=== PATIENT | female | born 1960 | race African-American/Black ===

== ENCOUNTER 2018-12-10 03:57 | Emergency (ER) | payer MEDICARE ==
[2018-12-10] MEDS ORDERED: Lidocaine 1% w/Epinephrine 1:100K 20 ML VIAL ONE (04:07)
[2018-12-10] MEDS ORDERED: Proparacaine 0.5% Opth 15 ML BOT ONE (04:07)
[2018-12-10] MEDS ORDERED: Fluorescein Opthalmic Strip ONE (04:08)
[2018-12-10] MEDS ORDERED: Acetaminophen 500 MG TAB ONE (05:19)
[2018-12-10] MEDS ORDERED: cloNIDine 0.1 MG TAB ONE (05:34)
== END 2018-12-10 05:42 | disposition home or self-care (01) ==
LOC: ERS 03:57
DX: S05.42XA Penetrating wound of orbit with or without foreign body, left eye, initial encounter (principal); H20.9 Unspecified iridocyclitis; I10 Essential (primary) hypertension; K21.9 Gastro-esophageal reflux disease without esophagitis; F41.9 Anxiety disorder, unspecified; F32.9 Major depressive disorder, single episode, unspecified; F43.10 Post-traumatic stress disorder, unspecified; Y04.0XXA Assault by unarmed brawl or fight, initial encounter
CPT/HCPCS: 12011; J2001

== ENCOUNTER 2018-12-19 10:59 | Emergency (ER) | payer MEDICARE | END 2018-12-19 12:19 | disposition home or self-care (01) | LOC: ERS 10:59 | DX: S01.112D Laceration without foreign body of left eyelid and periocular area, subsequent encounter (principal); I10 Essential (primary) hypertension; X58.XXXD Exposure to other specified factors, subsequent encounter ==

== ENCOUNTER 2021-02-17 10:28 | Outpatient (CLI) | payer MEDICARE | END 2021-02-17 10:29 | disposition home or self-care (01) | LOC: BICMAMMO 10:28 | PROVIDERS: ATTEND Internal Medicine | DX: Z12.31 Encounter for screening mammogram for malignant neoplasm of breast (principal); Z91.89 Other specified personal risk factors, not elsewhere classified | CPT/HCPCS: 77063; 77067 ==

== ENCOUNTER 2022-01-09 12:21 | Emergency (ER) | payer MEDICARE ==
[2022-01-09] MEDS ORDERED: methylPREDNISolone Sod Succ/PF 125 MG/2 ML VIAL ONE (12:48)
[2022-01-09] MEDS ORDERED: Famotidine/PF 20 mg/2ml Vial ONE (12:48)
[2022-01-09 12:55] LABS: #Basophils 0.1 thou/uL (0.0-0.2); #Eosinphils 0.3 thou/uL (0.0-0.7); #Lymphocytes 2.5 thou/uL (1.20-3.40); #Monocytes 0.4 thou/uL (0.11-0.59); #Neutrophils 4.5 thou/uL (1.40-6.50); %Basophils 1.4 % (0.0-1.0); %Eosinophils 3.3 % (0.0-10.0); %Lymphocytes 31.9 % (21.0-51.0); %Monocytes 4.9 % (0.0-10.0); %Neutrophils 58.6 % (42.0-75.0); Hemoglobin 15.4 g/dL (12.0-16.0); Mean Corpuscular HGB CONC 32.1 g/dL (32.0-36.0); Mean Corpuscular Hemoglobin 30.1 pg (27.0-31.0); Mean Corpuscular Volume 93.6 fL (78.0-98.0); Mean Platelet Volume 7.8 fL (7.4-10.4); Platelet Count 187 thou/uL (130-400); RBC Distribution Width 12.1 % (11.5-14.5); Red Blood Cell (RBC) Count 5.12 mill/uL (4.20-5.40); White Blood Cell (WBC) Count 7.7 thou/uL (4.8-10.8)
[2022-01-09 13:14] LABS: Anion Gap 13 mmol/L (10-20); BUN (Urea Nitrogen) 11 mg/dL (9.8-20.1); Calc. Creatinine Clearance 0 mL/min (70-130); Calcium 8.8 mg/dL (7.8-10.44); Carbon Dioxide 23 mmol/L (23-31); Chloride 108 mmol/L (98-107); Glucose 89 mg/dL (80-115); Potassium 3.7 mmol/L (3.5-5.1); Sodium 140 mmol/L (136-145)
[2022-01-09] MEDS ORDERED: Iopamidol-370 76% 500 ML 1 ML ONE (16:26)
== END 2022-01-09 14:49 | disposition home or self-care (01) ==
LOC: ERS 12:21
DX: T78.49XA Other allergy, initial encounter (principal); R22.0 Localized swelling, mass and lump, head; I10 Essential (primary) hypertension; K21.9 Gastro-esophageal reflux disease without esophagitis; F17.210 Nicotine dependence, cigarettes, uncomplicated
CPT/HCPCS: 70487; 80048; 85025; 96374; 96375; J2930; Q9967; S0028

== ENCOUNTER 2023-05-20 11:06 | Outpatient (CLI) | payer MEDICARE | END 2023-05-20 11:07 | disposition home or self-care (01) | LOC: BICMAMMO 11:06 | PROVIDERS: ATTEND Nurse Practitioner Family | DX: Z12.31 Encounter for screening mammogram for malignant neoplasm of breast (principal); Z91.89 Other specified personal risk factors, not elsewhere classified | CPT/HCPCS: 77063; 77067 ==